=== PATIENT | male | born 1955 | race Two or more races ===

== ENCOUNTER 2019-08-11 19:56 | Emergency (ER) | payer SELFPAY ==
[~2019-08-11] VITALS: Ht 111.8 cm; Wt 68.0 kg
[2019-08-11] MEDS ORDERED: HALOPERIDOL LACTATE 5MG/ML VIAL IM STA (21:26)
[2019-08-11] MEDS ORDERED: SODIUM CHLORIDE 0.9% 1,000 ML IV ONE (21:26)
[2019-08-11 23:18] LABS: BASOPHILS % 0.3 % (0.0-2.0); EOSINOPHILS % 4.1 % (0.0-5.0); HEMATOCRIT. 39.9 % (42.0-52.0); HEMOGLOBIN. 13.5 g/dL (14.0-18.0); MEAN CORPUSCULAR HEMOGLOBIN 31.3 pg (28.0-32.0); MEAN CORPUSCULAR VOLUME 92.8 fL (80.0-94.0); MONOCYTES % 7.6 % (2.0-8.0); PLATELET 243 x1000/uL (130-400); RED CELL DISTRIBUTION WIDTH 14.5 % (11.6-14.6)
[2019-08-11 23:20] LABS: CHLORIDE 107 mEq/L (98-107)
[2019-08-11 23:23] LABS: ETHANOL BLOOD < 10 mg/dL
[2019-08-11 23:24] LABS: CLARITY URINE CLEAR (CLEAR); COLOR URINE YELLOW (YELLOW); KETONES URINE NEGATIVE (NEGATIVE); LEUKOCYTE ESTERASE URINE NEGATIVE (NEGATIVE); NITRITE URINE NEGATIVE (NEGATIVE); OCCULT BLOOD URINE NEGATIVE (NEGATIVE); PH URINE 5.5 (4.5-8.0); PROTEIN URINE NEGATIVE (NEGATIVE); SPECIFIC GRAVITY URINE 1.025 (1.005-1.030)
[2019-08-11] MEDS ORDERED: DOPAMINE 400MG/250ML PREMIX 250 ML IV ONE (23:30)
[2019-08-11 23:44] LABS: *BARBITURATES SCREEN URINE NEGATIVE (NEGATIVE); *BENZODIAZEPINES SCREEN URINE PRESUMTIVE POSITIVE (NEGATIVE); *COCAINE SCREEN URINE NEGATIVE (NEGATIVE); METHADONE URINE SCREEN NEGATIVE (NEGATIVE); OPIATES URINE SCREEN NEGATIVE (NEGATIVE)
[2019-08-11 23:45] LABS: *AMPHETAMINES SCREEN URINE NEGATIVE (NEGATIVE); CANNABINOID URINE SCREEN NEGATIVE (NEGATIVE); PHENCYCLIDINE URINE SCREEN NEGATIVE (NEGATIVE)
[2019-08-12 08:28] VITALS: BP 118/80
== END 2019-08-12 13:00 | disposition home or self-care (01) ==
LOC: ER 19:56
DX: R41.82 Altered mental status, unspecified (principal); R45.1 Restlessness and agitation; Z89.512 Acquired absence of left leg below knee; Z89.511 Acquired absence of right leg below knee
CPT/HCPCS: 36415; 71045; 80053; 80305; 80320; 81003; 82962; 83880; 84484; 85025; 93005; 96360; 96361; 96372; 99284; J1630; J7030; Z7610; G0480